=== PATIENT | male | born 1950 | race Caucasian/White ===

== ENCOUNTER → 2017-12-03 | Outpatient (CLI) | payer BC | LOC: FIMAGING 14:49 → EDSTATUS 14:49 | PROVIDERS: ATTEND Internal Medicine Hematology & Oncology | DX: J98.09 Other diseases of bronchus, not elsewhere classified (principal) ==

== ENCOUNTER → 2018-03-18 | Outpatient (CLI) | payer BC | DX: M96.89 Other intraoperative and postprocedural complications and disorders of the musculoskeletal system (principal); M17.5 Other unilateral secondary osteoarthritis of knee; M25.562 Pain in left knee ==